=== PATIENT | female | born 1985 | race Caucasian/White ===

== ENCOUNTER 2017-09-15 12:32 | Inpatient (IN) | payer MEDICAID ==
[2017-09-15] MEDS ORDERED: CARBOPROST 250 MCG INJ IM ×2 (14:00→23:30)
[2017-09-15] MEDS ORDERED: MISOPROSTOL 200 MCG TAB PR ×2 (14:00→23:30)
[2017-09-15] MEDS ORDERED: METHYLERGONOVINE 0.2 MG INJ IM ×2 (14:00→23:30)
[2017-09-15] MEDS ORDERED: OXYTOCIN 30 UNITS/LR 500 ML IV ×3 (14:00→23:30)
[2017-09-15] MEDS ORDERED: LIDOCAINE 1% (MPF) 30 ML INJ INJ (14:00)
[2017-09-15] MEDS ORDERED: AMPICILLIN 2 GM/NS (PMX) 100 ML IV (14:00)
[2017-09-15] MEDS: LACTATED RINGER'S 1,000 ML IV (14:18)
[2017-09-15] MEDS: OXYTOCIN 30 UNITS/LR 500 ML IV ×4 (14:44→22:39)
[2017-09-15 14:52] LABS: ADD MAN DIFF? NO
[2017-09-15 15:00] LABS: WHITE BLOOD COUNT 10.9 10^3/ul (4.8-10.8)
[2017-09-15 15:00] LABS: BASOPHILS % 0.3 % (0.0-2.0); EOSINOPHILS % 0.4 % (0.0-7.0); HEMATOCRIT 39.2 % (37.0-47.0); HEMOGLOBIN 13.1 g/dl (12.0-16.0); LYMPHOCYTES # 2.5 10^3/ul (0.8-2.9); LYMPHOCYTES % 22.8 % (15.0-51.0); MEAN CORPUSCULAR HEMOGLOBIN 30.6 pg (29.0-33.0); MEAN CORPUSCULAR HGB CONC 33.4 g/dl (32.0-37.0); MEAN CORPUSCULAR VOLUME 91.6 fl (82.0-101.0); MEAN PLATELET VOLUME 9.4 fl (7.4-10.4); MONOCYTE # 0.5 10^3/ul (0.3-0.9); NEUTROPHIL # 7.7 10^3/ul (1.6-7.5); NEUTROPHILS % 70.9 % (39.0-77.0); PLATELET COUNT 183 10^3/UL (140-415); RED BLOOD COUNT 4.28 10^6/ul (4.20-5.40); RED CELL DISTRIBUTION WIDTH 13.1 % (11.5-14.5)
[2017-09-15 15:14] LABS: INR 0.82; PARTIAL THROMBOPLASTIN TIME 26.5 Sec (25.0-35.0); PROTIME 11.4 Sec (11.9-14.9); PT RATIO 0.9
[2017-09-15] MEDS: BUTORPHANOL 2 MG INJ IV (15:58)
[2017-09-15] MEDS ORDERED: AMPICILLIN 1 GM/NS (PMX) 50 ML IV (17:30)
[2017-09-15] MEDS: IBUPROFEN 600 MG TAB PO (19:38)
[2017-09-15] MEDS ORDERED: ZOLPIDEM 5 MG TAB PO (23:30)
[2017-09-15] MEDS ORDERED: BENZOCAINE 20% 56 ML SPRAY TOP (23:30)
[2017-09-15] MEDS ORDERED: LANOLIN 7 GM TUBE TOP (23:30)
[2017-09-15] MEDS ORDERED: WITCH HAZEL/GLYCERIN PAD PR (23:30)
[2017-09-15] MEDS ORDERED: HYDROCODONE/APAP (5/325) TAB PO (23:30)
[2017-09-15] MEDS ORDERED: DIPHENHYDRAMINE 25 MG CAP PO (23:30)
[2017-09-15] MEDS ORDERED: SENNA/DOCUSATE NA (8.6MG/50MG) TAB PO (23:30)
[2017-09-15] MEDS ORDERED: ACETAMINOPHEN 325 MG TAB PO (23:30)
[2017-09-15] MEDS: IBUPROFEN 800 MG TAB PO (23:54)
[2017-09-15] MEDS: MAGNESIUM HYDROXIDE 30ML CUP PO (23:54)
[2017-09-16] MEDS: LACTATED RINGER'S 1,000 ML IV* ×2 (02:41→07:19)
[2017-09-16] MEDS: IBUPROFEN 800 MG TAB PO ×4 (05:35→23:28)
[2017-09-16 09:25] LABS: ADD MAN DIFF? NO
[2017-09-16 09:36] LABS: WHITE BLOOD COUNT 13.4 10^3/ul (4.8-10.8)
[2017-09-16 09:36] LABS: BASOPHILS % 0.2 % (0.0-2.0); EOSINOPHILS % 0.2 % (0.0-7.0); HEMATOCRIT 28.1 % (37.0-47.0); HEMOGLOBIN 9.9 g/dl (12.0-16.0); LYMPHOCYTES # 1.9 10^3/ul (0.8-2.9); LYMPHOCYTES % 14.2 % (15.0-51.0); MEAN CORPUSCULAR HEMOGLOBIN 31.8 pg (29.0-33.0); MEAN CORPUSCULAR HGB CONC 35.2 g/dl (32.0-37.0); MEAN CORPUSCULAR VOLUME 90.4 fl (82.0-101.0); MEAN PLATELET VOLUME 9.1 fl (7.4-10.4); MONOCYTE # 0.5 10^3/ul (0.3-0.9); MONOCYTES % 3.9 % (0.0-11.0); NEUTROPHIL # 10.9 10^3/ul (1.6-7.5); NEUTROPHILS % 81.1 % (39.0-77.0); PLATELET COUNT 129 10^3/UL (140-415); RED BLOOD COUNT 3.11 10^6/ul (4.20-5.40); RED CELL DISTRIBUTION WIDTH 13.3 % (11.5-14.5)
[2017-09-16 16:51] LABS: RAPID PLASMA REAGIN NONREACTIVE (NR)
[2017-09-16] MEDS: INFLUENZA VIRUS VACCINE 0.5 ML (DISPENSING) IM* (17:21)
[2017-09-17] MEDS: IBUPROFEN 800 MG TAB PO ×2 (05:10→11:17)
[2017-09-17] MEDS: VARICELLA VACCINE LIVE/PF 1,350 UNIT/0.5 ML ML SC* (09:00)
[2017-09-17] MEDS: MEASLES,MUMPS,RUBELLA VACCINE INJ SC* (09:00)
[2017-09-17] MEDS: DIPHTH/TET/ACEL PERTUSS (ADULT) 0.5 ML VIAL IM* (11:18)
[2017-09-18] MEDS ORDERED: INFLUENZA VIRUS VACCINE 0.5 ML (DISPENSING) IM* (09:00)
== END 2017-09-17 16:40 | disposition home or self-care (01) | DRG 775 ==
LOC: OBT 12:32 → L-D 12:32 → OBT 13:24 → L-D 13:18 → PP1 21:07
PROVIDERS: Obstetrics & Gynecology
PROC: 10E0XZZ Delivery of Products of Conception, External Approach (ICD-10-PCS; principal; 2017-09-15)
PROC: 3E033VJ Introduction of Other Hormone into Peripheral Vein, Percutaneous Approach (ICD-10-PCS; 2017-09-15)
DX: O80 Encounter for full-term uncomplicated delivery (principal); Z37.0 Single live birth; Z3A.39 39 weeks gestation of pregnancy
CPT/HCPCS: 85025; 85610; 85730; 86592; 86900; 86901; 90686; 90715; 90716; 99464

== ENCOUNTER 2019-01-03 09:06 | Emergency (ER) | payer MEDICAID | END 2019-01-03 11:06 | disposition home or self-care (01) | LOC: FTE 09:06 | DX: L25.9 Unspecified contact dermatitis, unspecified cause (principal) | CPT/HCPCS: 99282; Z7502 ==